=== PATIENT | female | born 1975 | race Two or more races ===

== ENCOUNTER 2019-09-17 08:22 | Outpatient (CLI) | payer OTHER ==
[~2019-09-17 08:22] MED LIST: PREDNISONE5 MG/DOSE- PO; TRAMADOL HCL50 MG PO
== END 2019-09-17 09:00 | disposition home or self-care (01) ==
LOC: LAB 08:22
PROVIDERS: ATTEND Plastic Surgery
DX: Z03.818 Encounter for observation for suspected exposure to other biological agents ruled out (principal); Z20.828 Contact with and (suspected) exposure to other viral communicable diseases

== ENCOUNTER 2020-11-20 08:00 | Outpatient (CLI) | payer OTHER | END 2020-11-20 08:30 | disposition home or self-care (01) | LOC: PPH VACUNA 08:00 | PROVIDERS: ATTEND Emergency Medicine Pediatric Emergency Medicine | DX: Z23 Encounter for immunization (principal) ==

== ENCOUNTER → 2021-02-25 10:02 | Outpatient (CLI) | payer OTHER | END | disposition home or self-care (01) | LOC: LAB 10:02 | PROVIDERS: ATTEND Plastic Surgery | DX: Z03.818 Encounter for observation for suspected exposure to other biological agents ruled out (principal); Z20.828 Contact with and (suspected) exposure to other viral communicable diseases ==

== ENCOUNTER 2022-08-29 06:00 | Day surgery (SDC) | payer OTHER ==
[~2022-08-29] VITALS: Ht 149.9 cm; Wt 60.3 kg
[~2022-08-29 06:00] MED LIST changes: +ARMOUR THYROID60 M1 PO; +GLUMETZA500 MG PO
[2022-08-29] MEDS ORDERED: ZIPSOR25 MG PO (08:26)
== END 2022-08-29 12:10 | disposition home or self-care (01) ==
LOC: CIR.AMB 06:00
PROVIDERS: ATTEND Obstetrics & Gynecology
DX: N95.0 Postmenopausal bleeding (principal); N85.8 Other specified noninflammatory disorders of uterus; Z20.822 Contact with and (suspected) exposure to COVID-19; E03.9 Hypothyroidism, unspecified; I10 Essential (primary) hypertension